=== PATIENT | female | born 1995 | race Caucasian/White ===

== ENCOUNTER 2023-12-23 23:49 | Emergency (ER) | payer BC ==
[2023-12-23 23:54] VITALS: BP 121/79; PULSE 71; RESP 16; TEMP 97.9; BMI 30.1
== END 2023-12-24 01:38 | disposition home or self-care (01) ==
LOC: JER 23:49
DX: S99.912A Unspecified injury of left ankle, initial encounter (principal); M25.572 Pain in left ankle and joints of left foot; X50.1XXA Overexertion from prolonged static or awkward postures, initial encounter
CPT/HCPCS: 73610-TC-LT-FY; 73630-TC-LT; 99283-25